=== PATIENT | female | born 1985 | race Caucasian/White ===

== ENCOUNTER 2018-11-12 16:28 | Outpatient (AMB) | payer MEDICAID, SELFPAY ==
[2018-11-12 16:43] VITALS: BP 134/88; PULSE 77; RESP 20; TEMP 36.8; O2SAT 98; BMI 38.8
--- NOTE | 2018-11-12 16:43 | UCVISIT ---
Intake Ht./Wt. Decline/Exclusions Patient Declined Height and Weight this visit: No PT Meets exclusion criteria: No Vital Signs 11/12/18 16:43 Height 5 ft 4 in Height Method Measured Weight Measurement Method Standing Scale BMI 38.8 Temp 98.3 F Temp Source Temporal Artery Scan Pulse 77 Pulse Source Monitor Respiration 20 BP 134/88 H Blood Pressure Source Automatic Cuff Blood Pressure Location Right Upper Arm Position Sitting Pulse Oximetry (%) 98 Oxygen Delivery Method Room Air Intake Zika Travel: No Been in contact w/anyone who has been Dx w/Zika Virus: No Been in contact w/anyone sick during travel outside country: No Patient >or equal to 18 years BMI outside of range 18.5-24.9: Yes Visit Reasons: UC Chest pain Primary Care Provider: Other,. Is patient in pain?: No Triage Triage Allergy / Med Rec Allergies morphine Allergy (Severe, Unverified 11/12/18 16:50) RASH/HIVES ANESTHESIA Adverse Reaction (Intermediate, Uncoded 11/12/18 16:50) BRADYCARDIA Band Placement: Patient Identification HERNÁN: [id number] Arrival Mode of Arrival: Private Vehicle Method of Arrival: Ambulatory Accompanied By: Self and Significant Other PCP or OBGYN visit in last 3 months: No Language Preferred Language: Uzbek Java Android Developer Required: No Female History Now: No Last Menstrual Period: 10/25/18 : No Social History Alcohol / Drugs Hx Alcohol Use: Yes (occassionally) Hx Substance Use: No Safety Do You Feel Safe at Home: Yes Authorities Contacted: N/A Luna Fall Scale Special Populations Patient Comatose, Paralyzed or Immobile: No Patient Under the Age of 44 Years Old: No Assessment History of falling; immediate or within 3 months: No Secondary diagnosis: No Ambulatory aid: None IV Infusion: No Gait/Transferring: Normal/bedrest/immobile Mental Status: Oriented to own ability Score Score: 0 Risk Level/Action Risk Level: Low Risk Action: Good Basic Nursing Care Fall Star Level 1 Fall Star Level 1: Yes Patient Education Topic Education Topics: Plan of Care Teaching Recipient: Patient Readiness, Motivation to Learn: Active Methods: Electronic Education / Instruction and Verbal instruction Educ Materials Suggested by INFO Button/Rx Monograph Given: No Response: Verbalize Understanding Java Android Developer Required: No Population Health PMH Hx Congestive Heart Failure: No Hx Diabetes Mellitus Type 1: No Hx Diabetes Mellitus Type 2: No Hx Renal Disease: No Hx Chronic Obstructive Pulmonary Disease (COPD): No Past Medical History Reviewed and agree with Nursing documentation.: Yes Cardiac Medical History Hx Congestive Heart Failure: No Endocrine Medical History Hx Diabetes Mellitus Type 1: No Hx Diabetes Mellitus Type 2: No Genitourinary Medical History Hx Renal Disease: No Respiratory Medical History Hx COPD: No HPI Chest Pain Patient presents to the urgent care with cough, fever, body aches, some chest discomfort with coughing times yesterday. Denies any wheezing or shortness of breath. No others at home with the same symptoms. Most Recent Cardiac Tests: No Data to Display Review of Systems (UC) Review of Systems All systems reviewed & no additional complaints except as documented Exam (UC) Limitations: no limitations General Appearance: alert, in no apparent distress, comfortable, cooperative, healthy appearing, well developed and well groomed Head exam: atraumatic, normocephalic and normal inspection Eye exam: Reports normal appearance and Reports EOMI ENT exam: Present normal exam, normal external ear exam, TM's normal bilaterally, normal oropharynx and mucous membranes moist Neck Exam: Present normal inspection, non-tender, trachea midline and supple Chest/Breast Exam: Present normal inspection and symmetric chest wall rise SPO2%: 98% SPO2 type: Room Air SPO2% Normal/Abnormal: Normal Respiratory exam: Present normal lung sounds bilaterally, normal respiratory effort, able to speak in complete sentences and clear to ascultation bilaterally Cardiovascular exam: Present regular rate and regular rhythm Neurological Exam: Present alert, awake and oriented X3 Psychiatric exam: Present normal affect and normal mood Skin exam: Present warm, dry, intact and normal color Office Procedures Rapid Influenza Bedside Test Rapid Flu: Positive (A+) Rapid Strep Bedside Test Rapid Strep: Negative Assessment and Plan Assessment & Plan (1) Chest pain: (2) Influenza A: Plan - Cally Michaud PA-C: Follow-up in 3-5 days if your symptoms have not improved, or sooner if needed. Plan Details Other Orders: Orders: Rapid Influenza Today Rapid Strep Today Throat Culture Today Primary Care Provider: Other,. Instructions: Flu Additional Information PA/FIRE EXTINGUISHER INSTALLER Supervising Physician: Deandre Soto DC Evaluation Discharge Information Seen, Treated and Released by Provider: No Left Prior to Receiving Discharge Instructions: No Transfer to Outside Facility: No Vital Signs Vitals Signs N/A: Yes Discharge Information Condition on Discharge: Stable Mode of Discharge: Ambulatory Discharge Transportation: Private Vehicle Instructions Java Android Developer Required: No Discharge Instructions Given To: Patient Was Follow up Care Ordered: Yes Verbalizes Understanding of Discharge Instructions: Yes Patient plan follow up w/PCP for [employer]: No
== END 2018-11-12 17:40 | disposition home or self-care (01) ==
PROVIDERS: PCP Family Medicine; Referring Provider Family Medicine; Visit Provider Physician Assistant Medical

== ENCOUNTER 2024-10-06 19:08 | Emergency (ER) | payer MEDICAID, SELFPAY ==
[2024-10-06 20:26] VITALS: BP 145/84; PULSE 84; RESP 18; TEMP 37; O2SAT 96; BMI 37.0
--- NOTE | 2024-10-06 20:35 | EDNOTE_ITS ---
Upper Respiratory Inf. RME/HPI General Chief Complaint: Flu Like Symptoms Stated Complaint: COUGH,SORE THROAT,DIARRHEA Time Seen by Provider: 10/06/24 20:33 Arrival date/time: 10/06/24 19:08 39F with no significant PMH presents to ED with 2 days of cough and sore throat, as well as 1 episode of non-bloody diarrhea. Limitations: no limitations Related Data Previous Rx's ?Medication ?Instructions ?Recorded benzonatate 200 mg capsule 200 mg PO TID PRN cough #30 caps 07/25/19 ipratropium bromide 21 mcg (0.03 2 spray intranasal BI D #30 mL 07/25/19 %) nasal spray loratadine 10 mg tablet (Allergy 10 mg PO QDAY allergy symptoms #30 07/25/19 Relief (loratadine)) tabs benzonatate 200 mg capsule 200 mg PO TID PRN cough #30 caps 06/14/21 loratadine 10 mg capsule 10 mg PO QDAY PRN allergy sy mptoms 06/14/21 #30 caps cyclobenzaprine 10 mg tablet 10 mg PO HS PRN muscle sp asm #20 06/24/23 tabs prednisone 20 mg tablet 20 mg PO QDAY #12 tabs 06/24 Allergies Allergy/AdvReac Type Severity Reaction Status Date / Time morphine Allergy Severe RASH/HIVES Verified 10/06/24 19:10 Review of Systems Review of Systems Systems Reviewed: All systems reviewed, normal except as documented Constitutional Constitutional: Reports system reviewed and no additional complaints, except as documented, Denies fever(s) and Denies headache(s) ENT Ears, Nose, Mouth, and Throat: Reports as per HPI, Denies disequilibrium, Denies headache(s) and Reports sore throat Cardiovascular Cardiovascular: Reports system reviewed and no additional complaints, except as documented, Denies chest pain and Denies dyspnea Respiratory Respiratory: Reports system reviewed and no additional complaints, except as documented, Reports as per HPI, Reports cough and Denies dyspnea Gastrointestinal Gastrointestinal: Reports system reviewed and no additional complaints, except as documented, Reports as per HPI, Denies abdominal pain, Reports diarrhea, Denies nausea and Denies vomiting Neurologic Neurologic: Reports system reviewed and no additional complaints, except as documented, Denies confusion, Denies disequilibrium and Denies headache(s) Psychiatric Psychiatric: Denies confusion Past Medical History Past Medical History CARDIAC: Negative Congestive Heart Failure RESPIRATORY: Negative Chronic Obstructive Pulmonary Disease (COPD) GENITOURINARY: Negative Renal Disease ENDOCRINE: Negative Diabetes Mellitus Type 1 or Diabetes Mellitus Type 2 Surgical History SURGICAL: Positive Abdominal Surgery and Tubal Ligation Social History SMOKING STATUS: Current every day smoker SUBSTANCE USE: does not use ED Exam General Limitations: Present no limitations General appearance: Present alert and in no apparent distress Head Head exam: Present atraumatic Eye Eye exam: Present normal appearance, PERRL and EOMI ENT ENT exam: Present normal exam, normal oropharynx and mucous membranes moist Neck Neck exam: Present normal inspection, full ROM and trachea midline Chest Chest inspection: Present normal inspection and symmetric chest wall rise Respiratory Respiratory exam: Present normal lung sounds bilaterally Cardiovascular Cardiovascular exam: Present regular rate, normal rhythm and normal heart sounds Abdominal Exam Abdominal exam: Present soft and normal bowel sounds Extremities Exam Extremities exam: Present normal inspection and full ROM Back Exam Back exam: Present normal inspection and full ROM Neurological Exam Neurological exam: Present alert, oriented X3 and CN II-XII intact Psychiatric Psychiatric exam: Present normal affect and normal mood Skin Skin exam: Present warm, dry, intact and normal color Course Quality Measures none Orders Category Date Time Status Bedside Influenza A&B Antigen Test NOW Care 10/06/24 19:14 Completed Vital Signs Vital signs: Vital Signs Temperature 98.6 F 10/06/24 20:26 Pulse Rate 84 10/06/24 20:26 Respiratory Rate 18 10/06/24 20:26 Blood Pressure 145/84 H 10/06/24 20:26 Pulse Oximetry (%) 96 10/06/24 20:26 Oxygen Delivery Method Room Air 10/06/24 20:26 O2 at 96% on RA and WNLs Upper Respiratory Infection MDM Narrative MDM Narrative:: 39F with no significant PMH presents to ED with 2 days of cough and sore throat, as well as 1 episode of non-bloody diarrhea. Physical exam reveals nasal congestion, but otherwise clear ENT and lungs. No ab tenderness. Patient is afebrile, calm, and alert. Flu B+. Patient data External records reviewed:: [facility] previous records Clinical information provided by:: patient Social determinants that could affect healthcare access:: none Patient has the following chronic illnesses:: none How is presenting disease/condition affected by chronic disease/condition?: no chronic disease Evaluation data The following diagnostics were reviewed and interpreted by me:: lab results Lab and/or radiology exams considered but not ordered:: ordered Interpretation Summary: above Medications / Prescriptions Medications or Prescriptions considered but not ordered:: not ordered Medication administrations:: n/a Consultations Consultation(s) initiated? (list below): No Diagnosis Upper Respiratory Differential Diagnosis: upper respiratory infection, croup, otitis media, sinusitis, viral infection, bronchitis, influenza and pharyngitis Most likely diagnosis given after review of the tests above:: flu B Admission Indicated Admission indicated?: not indicated Admission Request Was there a request for admission?: No Disposition Plan Disposition Plan: Discharge Discharge Attestation Discharge Attestation: The patient and all family members were given an opportunity to ask questions and understood the discharge instructions. Discharge instructions specifically effects, indications for sooner follow up or return to the emergency department, and the expected course of current diagnosis. Patient condition: Stable Discharge Plan Plan Patient Disposition: HOME (Self Care) Disposition Comment: Stable Prescriptions/Referrals Prescriptions/Med Rec: No Action loratadine [Allergy Relief (loratadine)] 10 mg tablet 10 mg PO QDAY Qty: 30 3RF ipratropium bromide 0.03 % spray,non-aerosol 2 spray INTRANASAL BID Qty: 30 0RF Rx Instructions: administer into each nostril; wait 30 seconds between sprays benzonatate 200 mg capsule 200 mg PO TID PRN (Reason: cough) Qty: 30 0RF benzonatate 200 mg capsule 200 mg PO TID PRN (Reason: cough) Qty: 30 0RF loratadine 10 mg capsule 10 mg PO QDAY PRN (Reason: allergy symptoms) Qty: 30 0RF prednisone 20 mg tablet 20 mg PO QDAY Qty: 12 0RF Taper: Prednisone Taper 60 mg DAILY for 2 Days and 0 Hour 40 mg DAILY for 2 Days and 0 Hour 20 mg DAILY for 2 Days and 0 Hour Rx Instructions: 60mg daily for 2 days 40mg daily for 2 days 20mg daily for 2 days cyclobenzaprine 10 mg tablet 10 mg PO HS PRN (Reason: muscle spasm) Qty: 20 0RF Problem List Clinical Impression: Influenza B Patient/Caregiver Discharge Instructions Education Materials: ED Influenza (Adult) Additional Instructions: Please follow-up with PCP within 24-48 hours and return immediately if symptoms worsen. Ibuprofen/Tylenol can be used simultaneously for greater fever/pain control. CHINAI, Tylenol comes in a suppository form. Benadryl is good for cough, congestion, and sleep. Keep hydrated. Advance diet as tolerated Print Language: Hebrew Stand Alone Forms: Patient Portal Info Letter PA/COMPUTER COMPOSITOR Supervising Physician PA/COMPUTER COMPOSITOR Supervising Physician: Dr. Casillas
== END 2024-10-06 20:48 | disposition home or self-care (01) ==
LOC: SERX 20:39
PROVIDERS: Emergency Provider Emergency Medicine; PCP Family Medicine
DX: J10.1 Influenza due to other identified influenza virus with other respiratory manifestations (principal); F17.210 Nicotine dependence, cigarettes, uncomplicated
CPT/HCPCS: 87400; 99283

== ENCOUNTER 2025-02-16 01:40 | Emergency (ER) | payer MEDICAID, SELFPAY ==
[2025-02-16 01:40] VITALS: BMI 41.5
[2025-02-16 01:59] VITALS: BP 130/86; PULSE 68; RESP 17; TEMP 36.8; O2SAT 98
--- NOTE | 2025-02-16 03:07 | PD.EDURI ---
Upper Respiratory Inf. RME/HPI General Chief Complaint: Flu Like Symptoms Stated Complaint: FLU LIKE SYMTPOMS Time Seen by Provider: 02/16/25 01:50 Arrival date/time: 02/16/25 01:40 RME / HPI RME / HPI Narrative: 39-year-old female presents to the ED with a complaint of cough x 2 days that is keeping her awake. The cough is mainly a dry cough but occasionally she brings up an unknown color of mucus. She has had some runny nose and nasal congestion. She denies any fever or chills, ear pain or sore throat, nausea or vomiting, diarrhea or abdominal pain. She is a smoker but denies any smoking in the past 2 days. Related Data Previous Rx's ?Medication ?Instructions ?Recorded benzonatate 200 mg capsule 200 mg PO TID PRN cough #30 caps 07/25/19 ipratropium bromide 21 mcg (0.03 2 spray intranasal BID #30 mL 07/25/19 %) nasal spray loratadine 10 mg tablet (Allergy 10 mg PO QDAY allergy symptoms #30 07/25/19 Relief (loratadine)) tabs benzonatate 200 mg capsule 200 mg PO TID PRN cough #30 caps 06/14/21 loratadine 10 mg capsule 10 mg PO QDAY PRN allergy symptoms 06/14/21 #30 caps cyclobenzaprine 10 mg tablet 10 mg PO HS PRN muscle spasm #20 06/24/23 tabs prednisone 20 mg tablet 20 mg PO QDAY #12 tabs 06/24/23 albuterol sulfate 90 mcg/actuation 2 puff inhalation Q4H PRN 02/16/25 aerosol inhaler shortness of breath or wheezing #8.5 grams Allergies Allergy/AdvReac Type Severity Reaction Status Date / Time morphine Allergy Severe RASH/HIVES Verified 02/16/25 01:43 Review of Systems Review of Systems Systems Reviewed: All systems reviewed, normal except as documented Past Medical History Past Medical History CARDIAC: Negative Congestive Heart Failure RESPIRATORY: Negative Chronic Obstructive Pulmonary Disease (COPD) GENITOURINARY: Negative Renal Disease ENDOCRINE: Negative Diabetes Mellitus Type 1 or Diabetes Mellitus Type 2 Surgical History SURGICAL: Positive Abdominal Surgery and Tubal Ligation Social History SMOKING STATUS: Current some day smoker SUBSTANCE USE: does not use ED Exam Narrative Physical exam: Alert and oriented 39-year-old female, no acute distress. Active dry cough noted. Vital signs blood pressure 130/86, pulse 68, respirations 17 and nonlabored, temp 98.2, O2 sat 98% on room air. TMs and pharynx are without erythema, nares are pale and boggy, no sinus tenderness noted. Neck is supple, no adenopathy. Lungs are diminished at the bases with occasional scattered wheezes. Regular rate and rhythm without murmurs. Moves all extremities well. Course Course Course Narrative: COVID and flu swabs are negative. Strep screen is pending. XR chest 2 view ordered and pending. Patient was given dexamethasone 10 mg p.o. and DuoNeb treatment 3 mL. Quality Measures none Orders Category Date Time Status Bedside COVID-19 Antigen Test NOW Care 02/16/25 03:24 Completed Bedside Influenza A&B Antigen Test NOW Care 02/16/25 03:24 Completed XR chest 2V Stat Exams 02/16/25 03:11 Completed Albuterol/Ipratr Rt Rosalva [Duoneb Rt Rosalva] Med 02/16/25 03:11 Discontinued 3 ml INH X1 ONE Azithromycin Po [Zithromax PO] Med 02/16/25 04:15 Discontinued 500 mg PO X1 ONE Dexamethasone Inj [Decadron Inj] Med 02/16/25 03:11 Discontinued 10 mg PO X1 ONE Vital Signs Vital signs: Vital Signs Temperature 98.2 F 02/16/25 01:59 Pulse Rate 68 02/16/25 01:59 Respiratory Rate 17 02/16/25 01:59 Blood Pressure 130/86 H 02/16/25 01:59 Pulse Oximetry (%) 98 02/16/25 01:59 Oxygen Delivery Method Room Air 02/16/25 01:59 Upper Respiratory Infection MDM Narrative MDM Narrative:: 39-year-old female presents to the ED with a complaint of cough x 2 days that is keeping her awake. The cough is mainly a dry cough but occasionally she brings up an unknown color of mucus. She has had some runny nose and nasal congestion. She denies any fever or chills, ear pain or sore throat, nausea or vomiting, diarrhea or abdominal pain. She is a smoker but denies any smoking in the past 2 days. Alert and oriented 39-year-old female, no acute distress. Active dry cough noted. Vital signs blood pressure 130/86, pulse 68, respirations 17 and nonlabored, temp 98.2, O2 sat 98% on room air. TMs and pharynx are without erythema, nares are pale and boggy, no sinus tenderness noted. Neck is supple, no adenopathy. Lungs are diminished at the bases with occasional scattered wheezes. Regular rate and rhythm without murmurs. Moves all extremities well. COVID and flu swabs are negative. XR chest 2 view: FINDINGS: Normal heart size. Lungs are clear. The osseous structures are intact. IMPRESSION: No active disease. Patient was given dexamethasone 10 mg p.o. and DuoNeb treatment 3 mL. Patient data External records reviewed:: None Clinical information provided by:: patient Social determinants that could affect healthcare access:: none Patient has the following chronic illnesses:: N/A How is presenting disease/condition affected by chronic disease/condition?: no chronic disease Evaluation data The following diagnostics were reviewed and interpreted by me:: lab results and radiology exam(s) Lab and/or radiology exams considered but not ordered:: N/A Interpretation Summary: COVID and flu swabs are negative. XR chest 2 view: FINDINGS: Normal heart size. Lungs are clear. The osseous structures are intact. IMPRESSION: No active disease. Patient was given dexamethasone 10 mg p.o. and DuoNeb treatment 3 mL. Medications / Prescriptions Medications or Prescriptions considered but not ordered:: N/A Medication administrations:: Medication Administration History Discontinued Medications Albuterol/Ipratropium (Albuterol/Ipratropium (Duoneb) Rt Rosalva 3 Ml Nebu) 3 ml INH X1 ONE Stop: 02/16/25 03:12 Last Admin: 02/16/25 03:21 Dose: 3 ml Documented By: TYSHAWN Azithromycin (Azithromycin 250 Mg Tablet) 500 mg PO X1 ONE Stop: 02/16/25 04:16 Last Admin: 02/16/25 04:29 Dose: 500 mg Documented By: EE Dexamethasone Sodium Phosphate (Dexamethasone Sod Phos Inj 10 Mg/Ml Vial) 10 mg PO X1 ONE Stop: 02/16/25 03:12 Last Admin: 02/16/25 03:23 Dose: 10 mg Documented By: EE Patient was given DuoNeb 3 mL, azithromycin 500 mg p.o., and Decadron 10 mg p.o. Consultations Consultation(s) initiated? (list below): No Diagnosis Upper Respiratory Differential Diagnosis: upper respiratory infection, sinusitis, viral infection, bronchitis, influenza and other (Community-acquired pneumonia) Most likely diagnosis given after review of the tests above:: Lower respiratory tract infection Admission Indicated Admission indicated?: not indicated Explain why admission is indicated or not indicated:: Patient is stable for discharge Admission Request Was there a request for admission?: No Admission Attestation Admission request attestation: N/A Disposition Plan Disposition Plan: Discharge Discharge Attestation Discharge Attestation: The patient and all family members were given an opportunity to ask questions and understood the discharge instructions. Discharge instructions specifically effects, indications for sooner follow up or return to the emergency department, and the expected course of current diagnosis. Patient condition: Stable Discharge Plan Plan Patient Disposition: HOME (Self Care) Discharge Disposition comment: Stable Prescriptions/Referrals Prescriptions/Med Rec: New albuterol sulfate 90 mcg/actuation HFA aerosol inhaler 2 puff inhalation Q4H PRN (Reason: shortness of breath or wheezing) Qty: 8.5 0RF No Action loratadine [Allergy Relief (loratadine)] 10 mg tablet 10 mg PO QDAY Qty: 30 3RF ipratropium bromide 0.03 % spray,non-aerosol 2 spray INTRANASAL BID Qty: 30 0RF Rx Instructions: administer into each nostril; wait 30 seconds between sprays benzonatate 200 mg capsule 200 mg PO TID PRN (Reason: cough) Qty: 30 0RF benzonatate 200 mg capsule 200 mg PO TID PRN (Reason: cough) Qty: 30 0RF loratadine 10 mg capsule 10 mg PO QDAY PRN (Reason: allergy symptoms) Qty: 30 0RF prednisone 20 mg tablet 20 mg PO QDAY Qty: 12 0RF Taper: Prednisone Taper 60 mg DAILY for 2 Days and 0 Hour 40 mg DAILY for 2 Days and 0 Hour 20 mg DAILY for 2 Days and 0 Hour Rx Instructions: 60mg daily for 2 days 40mg daily for 2 days 20mg daily for 2 days cyclobenzaprine 10 mg tablet 10 mg PO HS PRN (Reason: muscle spasm) Qty: 20 0RF Referrals: No Primary/Family,Physician [Primary Care Provider] - In 1 week Problem List Clinical Impression: Acute lower respiratory tract infection Patient/Caregiver Discharge Instructions Education Materials: Acute Bronchitis, Preventing Common Respiratory ... Additional Instructions: Take the antibiotics as prescribed and complete the course even though you may be feeling better. Follow-up with your primary care physician in 24 to 48 hours. Return to the ED for any new or worsening symptoms. Print Language: Yi Stand Alone Forms: Sarah Award Info., Patient Portal Info Letter PA/CERTIFIED MASTER SAFECRACKER Supervising Physician PA/CERTIFIED MASTER SAFECRACKER Supervising Physician: Dr. Casillas
--- NOTE | 2025-02-16 03:11 | XR_ITS ---
Examination: PA lateral chest 2 views TECHNIQUE: Upright PA and lateral chest 2 views Date and time: February 16, 2025, 0338 hours INDICATIONS: Coughing beginning 2 days ago FINDINGS: Normal heart size. Lungs are clear. The osseous structures are intact IMPRESSION: No active disease
[2025-02-16] MEDS: ALBUTEROL/IPRATROPIUM (Duoneb) RT SOL 3 ML NEBU INH (03:21)
[2025-02-16] MEDS: DEXAMETHASONE SOD PHOS INJ 10 MG/ML VIAL PO (03:23)
[2025-02-16 03:25] VITALS: PULSE 68; RESP 18; O2SAT 98
[2025-02-16] MEDS: AZITHROMYCIN 250 MG TABLET 500 MG PO (04:29)
== END 2025-02-16 04:31 | disposition home or self-care (01) ==
PROVIDERS: Emergency Provider Emergency Medicine
DX: J22 Unspecified acute lower respiratory infection (principal)
CPT/HCPCS: 71046; 87400; 87651; 87811; 94640; 99283; A9270; J1100

== ENCOUNTER 2025-05-13 17:00 | Emergency (ER) | payer MEDICAID, SELFPAY ==
[2025-05-13 17:28] VITALS: BP 148/87; PULSE 63; RESP 18; TEMP 37.1; O2SAT 98
[2025-05-13 17:31] VITALS: BMI 40.2
--- NOTE | 2025-05-13 17:32 | EDNOTE_ITS ---
ED Dental RME/HPI General Chief complaint: Dental/Oral/Throat Stated complaint: TOOTHACHE Time Seen by Provider: 05/13/25 17:01 Arrival date/time: 05/13/25 17:00 40-year-old female presents to the emergency department today for complaints of acute on chronic dental pain patient worse went to the dentist today reports that they are unable to help her until 05/25 when she is supposed to have teeth extraction Limitations: no limitations Related Data Previous Rx's ?Medication ?Instructions ?Recorded benzonatate 200 mg capsule 200 mg PO TID PRN cough #30 caps 07/25/19 ipratropium bromide 21 mcg (0.03 2 spray intranasal BI D #30 mL 07/25/19 %) nasal spray loratadine 10 mg tablet (Allergy 10 mg PO QDAY allergy symptoms #30 07/25/19 Relief (loratadine)) tabs benzonatate 200 mg capsule 200 mg PO TID PRN cough #30 caps 06/14/21 loratadine 10 mg capsule 10 mg PO QDAY PRN allergy sy mptoms 06/14/21 #30 caps cyclobenzaprine 10 mg tablet 10 mg PO HS PRN muscle sp asm #20 06/24/23 tabs prednisone 20 mg tablet 20 mg PO QDAY #12 tabs 06/24 albuterol sulfate 90 mcg/actuation 2 puff inhalation Q 4H PRN 02/16/25 aerosol inhaler shortness of breath or wheez ing #8.5 grams hydrocodone 5 mg-acetaminophen 325 1 tab PO BID PRN pa in #10 tabs 05/13/25 mg tablet ibuprofen 800 mg tablet 800 mg PO TID PRN pain #30 t abs 05/13/25 Allergies Allergy/AdvReac Type Severity Reaction Status Date / Time morphine Allergy Severe RASH/HIVES Verified 02/16/25 01:43 Review of Systems Review of Systems Systems Reviewed: All systems reviewed, normal except as documented Constitutional Constitutional: Reports system reviewed and no additional complaints, except as documented, Denies fever(s) and Denies headache(s) Eyes Eyes: Reports system reviewed and no additional complaints, except as documented and Denies blurry vision ENT Ears, Nose, Mouth, and Throat: Reports system reviewed and no additional complaints, except as documented, Reports dental pain, Denies headache(s), Denies nasal congestion and Denies nasal discharge Cardiovascular Cardiovascular: Reports system reviewed and no additional complaints, except as documented, Denies chest pain and Denies dyspnea Respiratory Respiratory: Reports system reviewed and no additional complaints, except as documented, Denies chest congestion, Denies cough and Denies dyspnea Gastrointestinal Gastrointestinal: Reports system reviewed and no additional complaints, except as documented and Denies abdominal pain Integumentary/Breasts Skin/Breast: Reports system reviewed and no additional complaints, except as documented and Denies rash Neurologic Neurologic: Reports system reviewed and no additional complaints, except as documented, Reports as per HPI and Denies headache(s) Past Medical History Past Medical History CARDIAC: Negative Congestive Heart Failure RESPIRATORY: Negative Chronic Obstructive Pulmonary Disease (COPD) GENITOURINARY: Negative Renal Disease ENDOCRINE: Negative Diabetes Mellitus Type 1 or Diabetes Mellitus Type 2 Surgical History SURGICAL: Positive Abdominal Surgery and Tubal Ligation Social History SMOKING STATUS: Current every day smoker SUBSTANCE USE: does not use ED Exam General Limitations: Present no limitations General appearance: Present alert and in no apparent distress Head Head exam: Present atraumatic, normocephalic and normal inspection Eye Eye exam: Present normal appearance, PERRL and EOMI; Absent conjunctival injection ENT ENT exam: Present mucous membranes moist and other (Dental pain poor dentition) Neck Neck exam: Present normal inspection, full ROM and trachea midline Chest Chest inspection: Present normal inspection and symmetric chest wall rise Respiratory Respiratory exam: Present normal lung sounds bilaterally; Absent respiratory distress Cardiovascular Cardiovascular exam: Present regular rate, normal rhythm and normal heart sounds Abdominal Exam Abdominal exam: Present soft and normal bowel sounds; Absent distention, tenderness, guarding, rebound or rigidity Extremities Exam Extremities exam: Present normal inspection and full ROM Back Exam Back exam: Present normal inspection and full ROM Neurological Exam Neurological exam: Present alert, oriented X3 and CN II-XII intact Psychiatric Psychiatric exam: Present normal affect and normal mood Skin Skin exam: Present warm, dry, intact and normal color Course Quality Measures none Orders Category Date Time Status HYDROcodone*/APAP 5/325 [[place] 5/325] Med 05/13/25 17:32 Discontinued 1 tab PO X1 ONE Lidocaine 1% 20 ml [Xylocaine 1% 20 ML] Med 05/13/25 17:32 Discontinued 2.1 ml INFL X1 ONE cefTRIAXone [Rocephin] Med 05/13/25 17:32 Discontinued 1,000 mg IM X1 ONE Vital Signs Vital signs: Vital Signs Temperature 98.7 F 05/13/25 17:28 Pulse Rate 63 05/13/25 17:28 Respiratory Rate 18 05/13/25 17:28 Blood Pressure 148/87 H 05/13/25 17:28 Pulse Oximetry (%) 98 05/13/25 17:28 Oxygen Delivery Method Room Air 05/13/25 17:28 O2 saturation 98% on room air within normal limits Dental / Oral MDM Narrative MDM Narrative:: 40-year-old female presents to the emergency department today for complaints of acute on chronic dental pain patient worse went to the dentist today reports that they are unable to help her until 05/25 when she is supposed to have teeth extraction Patient reports been taking ibuprofen and Tylenol without relief Patient give injection of Rocephin discharged with antibiotics and pain medication Patient discharged home in no distress to follow-up with primary care doctor in the next 24 to 48 hours and for any worsening symptoms to return to the ER immediately Patient data External records reviewed:: [facility] previous records Clinical information provided by:: patient Social determinants that could affect healthcare access:: none Patient has the following chronic illnesses:: See history How is presenting disease/condition affected by chronic disease/condition?: caused by Evaluation data The following diagnostics were reviewed and interpreted by me:: other (specify) Lab and/or radiology exams considered but not ordered:: Considered not indicated Interpretation Summary: N/A Medications / Prescriptions Medications or Prescriptions considered but not ordered:: Given Medication administrations:: Medication Administration History Discontinued Medications Hydrocodone Bitart/Acetaminophen (Hydrocodone/Apap 5/325 Tablet) 1 tab PO X1 ONE Stop: 05/13/25 17:33 Ceftriaxone Sodium (Ceftriaxone Sod Inj 1,000 Mg Vial) 1,000 mg IM X1 ONE Stop: 05/13/25 17:33 Lidocaine HCl (Lidocaine Hcl 1% 20 Ml Vial) 2.1 ml INFL X1 ONE Stop: 05/13/25 17:33 Given Consultations Consultation(s) initiated? (list below): No Diagnosis Dental Differential Diagnosis: gingival abscess, dental caries, toothache and dental abscess Most likely diagnosis given after review of the tests above:: Dental pain Admission Indicated Admission indicated?: not indicated Admission Request Was there a request for admission?: No Disposition Plan Disposition Plan: Discharge Discharge Attestation Discharge Attestation: The patient and all family members were given an opportunity to ask questions and understood the discharge instructions. Discharge instructions specifically effects, indications for sooner follow up or return to the emergency department, and the expected course of current diagnosis. Patient condition: Stable Discharge Plan Plan Patient Disposition: HOME (Self Care) Discharge Disposition comment: Stable Prescriptions/Referrals Prescriptions/Med Rec: New ibuprofen 800 mg tablet 800 mg PO TID PRN (Reason: pain) Qty: 30 0RF hydrocodone-acetaminophen 5-325 mg tablet 1 tab PO BID MDD 10 PRN (Reason: pain) Qty: 10 0RF No Action loratadine [Allergy Relief (loratadine)] 10 mg tablet 10 mg PO QDAY Qty: 30 3RF ipratropium bromide 0.03 % spray,non-aerosol 2 spray INTRANASAL BID Qty: 30 0RF Rx Instructions: administer into each nostril; wait 30 seconds between sprays benzonatate 200 mg capsule 200 mg PO TID PRN (Reason: cough) Qty: 30 0RF benzonatate 200 mg capsule 200 mg PO TID PRN (Reason: cough) Qty: 30 0RF loratadine 10 mg capsule 10 mg PO QDAY PRN (Reason: allergy symptoms) Qty: 30 0RF prednisone 20 mg tablet 20 mg PO QDAY Qty: 12 0RF Taper: Prednisone Taper 60 mg DAILY for 2 Days and 0 Hour 40 mg DAILY for 2 Days and 0 Hour 20 mg DAILY for 2 Days and 0 Hour Rx Instructions: 60mg daily for 2 days 40mg daily for 2 days 20mg daily for 2 days cyclobenzaprine 10 mg tablet 10 mg PO HS PRN (Reason: muscle spasm) Qty: 20 0RF albuterol sulfate 90 mcg/actuation HFA aerosol inhaler 2 puff inhalation Q4H PRN (Reason: shortness of breath or wheezing) Qty: 8.5 0RF Referrals: No Primary/Family,Physician [Primary Care Provider] - In 1 week Problem List Clinical Impression: Abscess, dental Patient/Caregiver Discharge Instructions Education Materials: ED Dental Abscess Additional Instructions: Please follow up with your primary care doctor in the next 24-48hrs for any worsening symptoms return here immediately Print Language: Cook Islander Stand Alone Forms: Sarah Award Info., Patient Portal Info Letter PA/HAT PRESSER Supervising Physician PA/HAT PRESSER Supervising Physician: Dr. hennessy
[2025-05-13] MEDS: HYDROcodone/APAP 5/325 TABLET 1 TAB PO (17:46)
[2025-05-13] MEDS: LIDOCAINE HCL 1% 20 ML VIAL 2.1 ML INFL (17:47)
[2025-05-13] MEDS: cefTRIAXone SOD INJ 1,000 MG VIAL 1000 MG IM (17:48)
== END 2025-05-13 17:55 | disposition home or self-care (01) ==
PROVIDERS: Emergency Provider Family Medicine
DX: K04.7 Periapical abscess without sinus (principal)
CPT/HCPCS: 96372; 99284; J0696; J3490; A9270

== ENCOUNTER 2025-05-14 08:30 | Emergency (ER) | payer MEDICAID, SELFPAY ==
[2025-05-14 08:44] VITALS: BP 123/86; PULSE 89; RESP 18; TEMP 37; O2SAT 100; BMI 37.0
--- NOTE | 2025-05-14 08:55 | EDNOTE_ITS ---
ED Dental RME/HPI General Chief complaint: Dental/Oral/Throat Stated complaint: SWOLLEN RIGHT CHEEK/DENTAL Time Seen by Provider: 05/14/25 08:32 Source: patient Arrival date/time: 05/14/25 08:30 40-year-old female with no known medical history presents to the emergency room with a chief complaint of pain and tenderness to her right upper teeth x 3 days Mode of arrival: ambulatory Limitations: no limitations Related Data Previous Rx's ?Medication ?Instructions ?Recorded benzonatate 200 mg capsule 200 mg PO TID PRN cough #30 caps 07/25/19 ipratropium bromide 21 mcg (0.03 2 spray intranasal BI D #30 mL 07/25/19 %) nasal spray loratadine 10 mg tablet (Allergy 10 mg PO QDAY allergy symptoms #30 07/25/19 Relief (loratadine)) tabs benzonatate 200 mg capsule 200 mg PO TID PRN cough #30 caps 06/14/21 loratadine 10 mg capsule 10 mg PO QDAY PRN allergy sy mptoms 06/14/21 #30 caps cyclobenzaprine 10 mg tablet 10 mg PO HS PRN muscle sp asm #20 06/24/23 tabs prednisone 20 mg tablet 20 mg PO QDAY #12 tabs 06/24 albuterol sulfate 90 mcg/actuation 2 puff inhalation Q 4H PRN 02/16/25 aerosol inhaler shortness of breath or wheez ing #8.5 grams hydrocodone 5 mg-acetaminophen 325 1 tab PO BID PRN pa in #10 tabs 05/13/25 mg tablet ibuprofen 800 mg tablet 800 mg PO TID PRN pain #30 t abs 05/13/25 clindamycin HCl 300 mg capsule 300 mg PO TID 7 days #2 1 caps 05/14/25 Allergies Allergy/AdvReac Type Severity Reaction Status Date / Time morphine Allergy Severe RASH/HIVES Verified 05/14/25 08:33 Review of Systems Review of Systems Systems Reviewed: All systems reviewed, normal except as documented Constitutional Constitutional: Reports system reviewed and no additional complaints, except as documented, Denies fatigue, Denies fever(s), Denies headache(s) and Denies weakness Eyes Eyes: Reports system reviewed and no additional complaints, except as documented, Denies blurry vision and Denies change in vision ENT Ears, Nose, Mouth, and Throat: Reports system reviewed and no additional complaints, except as documented, Reports dental pain, Denies otalgia, Denies headache(s), Denies nasal congestion, Denies throat swelling and Denies vertigo Cardiovascular Cardiovascular: Reports system reviewed and no additional complaints, except as documented, Denies chest pain, Denies dyspnea and Denies dyspnea on exertion Respiratory Respiratory: Reports system reviewed and no additional complaints, except as documented, Denies chest congestion, Denies cough, Denies dyspnea, Denies dyspnea on exertion and Denies wheezing Gastrointestinal Gastrointestinal: Reports system reviewed and no additional complaints, except as documented, Denies abdominal pain, Denies cramping, Denies nausea and Denies vomiting Genitourinary Genitourinary: Reports system reviewed and no additional complaints, except as documented Musculoskeletal Musculoskeletal: Reports system reviewed and no additional complaints, except as documented and Denies back pain Integumentary/Breasts Skin/Breast: Reports system reviewed and no additional complaints, except as documented and Denies wounds Neurologic Neurologic: Reports system reviewed and no additional complaints, except as documented, Denies confusion, Denies headache(s), Denies lack of coordination, Denies vertigo and Denies weakness Psychiatric Psychiatric: Reports system reviewed and no additional complaints, except as documented, Denies anxiety, Denies confusion, Denies depression, Denies paranoia, Denies suicidal ideation and Denies tactile hallucinations Endocrine Endocrine: Reports system reviewed and no additional complaints, except as documented and Denies fatigue Hematologic/Lymphatic Hematologic/Lymphatic: Reports system reviewed and no additional complaints, except as documented and Denies lymphadenopathy Allergic/Immunologic Allergic/Immunologic: Reports system reviewed and no additional complaints, except as documented, Denies throat swelling, Denies urticaria and Denies wheezing ED Exam General Limitations: Present no limitations General appearance: Present alert and in no apparent distress Head Head exam: Present atraumatic Eye Eye exam: Present normal appearance, PERRL and EOMI ENT ENT exam: Present normal exam, normal oropharynx and mucous membranes moist Expanded ENT Exam Teeth exam: Present dental caries, fractured tooth #, dental tenderness # and gingival swelling Teeth numbered: 2 1. Fractured and Dental Tenderness Neck Neck exam: Present normal inspection, full ROM and trachea midline Chest Chest inspection: Present normal inspection and symmetric chest wall rise Respiratory Respiratory exam: Present normal lung sounds bilaterally Cardiovascular Cardiovascular exam: Present regular rate, normal rhythm and normal heart sounds Abdominal Exam Abdominal exam: Present soft and normal bowel sounds Extremities Exam Extremities exam: Present normal inspection and full ROM Back Exam Back exam: Present normal inspection and full ROM Neurological Exam Neurological exam: Present alert, oriented X3 and CN II-XII intact Psychiatric Psychiatric exam: Present normal affect and normal mood Skin Skin exam: Present warm, dry, intact and normal color Course Quality Measures none Orders Category Date Time Status Clindamycin Vial [Cleocin vial] Med 05/14/25 08:44 Discontinued 600 mg IM X1 ONE Ketorolac Inj [Toradol Inj] Med 05/14/25 08:44 Discontinued 30 mg IM X1 ONE Vital Signs Vital signs: Vital Signs Temperature 98.6 F 05/14/25 08:44 Pulse Rate 89 05/14/25 08:44 Respiratory Rate 18 05/14/25 08:44 Blood Pressure 123/86 H 05/14/25 08:44 Pulse Oximetry (%) 100 05/14/25 08:44 Oxygen Delivery Method Room Air 05/14/25 08:44 Dental / Oral MDM Narrative MDM Narrative:: 40-year-old female with no known medical history presents to the emergency room with a chief complaint of pain and tenderness to her right upper teeth x 3 days Patient is hemodynamically stable and in no apparent distress Patient is afebrile not tachycardic not tachypneic Physical examination shows tenderness and pain to the patient's tooth #[id number]. There is dental tenderness some fractures and some swelling. Patient has an appointment to see her dentist on 05/25/2025. Patient was seen here yesterday. Another shot of antibiotics and some oral antibiotics were sent to the patient's pharmacy. Patient was discharged and educated to follow-up with primary care provider in the next 24 to 48 hours and return to the emergency room for any evidence of worsening signs or symptoms Patient data External records reviewed:: [facility] previous records Clinical information provided by:: patient Social determinants that could affect healthcare access:: none Patient has the following chronic illnesses:: No chronic illness How is presenting disease/condition affected by chronic disease/condition?: no chronic disease Evaluation data The following diagnostics were reviewed and interpreted by me:: lab results and radiology exam(s) Lab and/or radiology exams considered but not ordered:: Labs and radiology exams considered and ordered Interpretation Summary: N/A Medications / Prescriptions Medications or Prescriptions considered but not ordered:: Medication given Medication administrations:: Medication Administration History Discontinued Medications Clindamycin Phosphate (Clindamycin Phos Inj 150 Mg/Ml Vial 6 Ml) 600 mg IM X1 ONE Stop: 05/14/25 08:45 Ketorolac Tromethamine (Ketorolac Inj 60 Mg/2 Ml Vial) 30 mg IM X1 ONE Stop: 05/14/25 08:45 Medication given Consultations Consultation(s) initiated? (list below): No Diagnosis Dental Differential Diagnosis: gingival abscess, dental caries, toothache, dental abscess and fracture of tooth Most likely diagnosis given after review of the tests above:: Dental abscess Admission Indicated Admission indicated?: not indicated Admission Request Was there a request for admission?: No Disposition Plan Disposition Plan: Discharge Discharge Attestation Discharge Attestation: The patient and all family members were given an opportunity to ask questions and understood the discharge instructions. Discharge instructions specifically effects, indications for sooner follow up or return to the emergency department, and the expected course of current diagnosis. Patient condition: Stable Discharge Plan Plan Patient Disposition: HOME (Self Care) Discharge Disposition comment: Stable Prescriptions/Referrals Prescriptions/Med Rec: New clindamycin HCl 300 mg capsule 300 mg PO TID 7 Days Qty: 21 0RF No Action loratadine [Allergy Relief (loratadine)] 10 mg tablet 10 mg PO QDAY Qty: 30 3RF ipratropium bromide 0.03 % spray,non-aerosol 2 spray INTRANASAL BID Qty: 30 0RF Rx Instructions: administer into each nostril; wait 30 seconds between sprays benzonatate 200 mg capsule 200 mg PO TID PRN (Reason: cough) Qty: 30 0RF benzonatate 200 mg capsule 200 mg PO TID PRN (Reason: cough) Qty: 30 0RF loratadine 10 mg capsule 10 mg PO QDAY PRN (Reason: allergy symptoms) Qty: 30 0RF prednisone 20 mg tablet 20 mg PO QDAY Qty: 12 0RF Taper: Prednisone Taper 60 mg DAILY for 2 Days and 0 Hour 40 mg DAILY for 2 Days and 0 Hour 20 mg DAILY for 2 Days and 0 Hour Rx Instructions: 60mg daily for 2 days 40mg daily for 2 days 20mg daily for 2 days cyclobenzaprine 10 mg tablet 10 mg PO HS PRN (Reason: muscle spasm) Qty: 20 0RF albuterol sulfate 90 mcg/actuation HFA aerosol inhaler 2 puff inhalation Q4H PRN (Reason: shortness of breath or wheezing) Qty: 8.5 0RF ibuprofen 800 mg tablet 800 mg PO TID PRN (Reason: pain) Qty: 30 0RF hydrocodone-acetaminophen 5-325 mg tablet 1 tab PO BID MDD 10 PRN (Reason: pain) Qty: 10 0RF Problem List Clinical Impression: Abscess, dental Patient/Caregiver Discharge Instructions Education Materials: Dental Abscess, ED Dental Abscess Additional Instructions: Please follow-up with your dentist in the next 24 to 48 hours Antibiotics were sent to your pharmacy please pick them up and take them as indicated For any evidence of worsening signs or symptoms return to the emergency room immediately Print Language: Chinese Stand Alone Forms: Sarah Award Info., Work/School Release, Patient Portal Info Letter PA/TAPPER OPERATOR Supervising Physician PA/TAPPER OPERATOR Supervising Physician: Dr. Saunders
[2025-05-14] MEDS: KETOROLAC INJ 60 MG/2 ML VIAL 30 MG IM (08:59)
[2025-05-14] MEDS: CLINDAMYCIN PHOS INJ 150 MG/ML VIAL 6 ML 600 MG IM (09:00)
== END 2025-05-14 10:55 | disposition home or self-care (01) ==
LOC: SERX 09:11
PROVIDERS: Emergency Provider Nurse Practitioner Family; PCP Family Medicine
DX: K04.7 Periapical abscess without sinus (principal)
CPT/HCPCS: 96372; 99283; J0736; J1885